=== PATIENT | female | born 1970 | race Caucasian/White ===

== ENCOUNTER 2021-02-13 15:42 | Inpatient (IN) ==
[2021-02-13] MEDS: Baclofen 10 MG TABLET PO SCH (20:56)
[2021-02-13] MEDS: *HR* HYDROcodone/Acet 5/325 mg TABLET PO PRN (20:56)
[2021-02-13] MEDS: Gabapentin 300 MG CAPSULE PO SCH (20:57)
[2021-02-13] MEDS: Insulin LISPRO 300 UNITS/3 ML VIAL SUBQ SCH (20:58)
[2021-02-14] MEDS: *HR* OxyCODONE Immed Rel 5 MG TABLET PO PRN ×3 (02:31→20:15)
[2021-02-14] MEDS: Baclofen 10 MG TABLET PO SCH ×3 (04:10→20:15)
[2021-02-14 07:06] LABS: Basophils % 0.1 %; Eosinophils # 0.2 K/mcL (0.0-0.6); Eosinophils % 3.1 %; Hematocrit 27.7 % (35.3-44.9); Hemoglobin 9.1 g/dL (11.5-15.4); Immature Granulocytes % 0.4 % (0-4); Lymphocytes # 2.3 K/mcL (0.6-4.6); Mean Corpuscular HGB Conc 32.9 g/dL (31.6-35.5); Mean Corpuscular Hemoglobin 29.1 pg (28.0-33.3); Mean Corpuscular Volume 88.5 fL (83.0-100.0); Mean Platelet Volume 8.3 fL (9.4-12.4); Monocytes # 0.5 K/mcL (0.0-1.3); Monocytes % 6.5 %; Neutrophils # 4.8 K/mcL (1.6-8.9); Platelet Count 387 K/mcL (140-400); Red Blood Count 3.13 M/mcL (3.82-4.97); Red Cell Distribution Width 13.1 % (11.5-14.5); Segmented Neutrophils % 60.9 %; White Blood Count 7.8 K/mcL (4.3-11.1)
[2021-02-14 07:25] LABS: BUN/Creatinine Ratio 25 (6-26); Blood Urea Nitrogen 14 mg/dL (6-20); Carbon Dioxide 27 mEq/L (23-29); Chloride 105 mEq/L (98-107); Glucose 117 mg/dL (70-105); Osmolality,Calculated 288 (280-300); Potassium 3.5 mEq/L (3.5-5.1); Sodium 138 mEq/L (136-145); eGFR For African Americans > 60 (> 60); eGFR For Non-African Americans > 60 (> 60)
[2021-02-14] MEDS: Insulin LISPRO 300 UNITS/3 ML VIAL SUBQ SCH ×4 (08:00→20:16)
[2021-02-14] MEDS: Gabapentin 300 MG CAPSULE PO SCH ×3 (08:13→20:15)
[2021-02-14] MEDS: *HR* Metformin 500 MG TABLET PO SCH (08:13)
[2021-02-14] MEDS: *HR* HYDROcodone/Acet 5/325 mg TABLET PO PRN ×2 (08:14→16:17)
[2021-02-14] MEDS: (Mirabegron [Myrbetriq] 50 MG Tab.Er.24h) PO SCH (08:28)
[2021-02-14] MEDS ORDERED: Patient Taking Own Medication 1 EACH PO SCH (09:00)
[2021-02-15] MEDS: Baclofen 10 MG TABLET PO SCH ×3 (03:37→21:39)
[2021-02-15] MEDS: *HR* HYDROcodone/Acet 5/325 mg TABLET PO PRN ×3 (03:37→21:40)
[2021-02-15] MEDS: Insulin LISPRO 300 UNITS/3 ML VIAL SUBQ SCH ×4 (08:22→21:40)
[2021-02-15] MEDS: Gabapentin 300 MG CAPSULE PO SCH ×3 (08:23→21:39)
[2021-02-15] MEDS: *HR* Metformin 500 MG TABLET PO SCH (08:23)
[2021-02-15] MEDS: (Mirabegron [Myrbetriq] 50 MG Tab.Er.24h) PO SCH (08:23)
[2021-02-15] MEDS: [UNRECOGNIZED DRUG - REMARK] PO SCH (08:59)
[2021-02-15] MEDS: *HR* OxyCODONE Immed Rel 5 MG TABLET PO PRN ×2 (10:11→17:41)
[2021-02-16] MEDS: Baclofen 10 MG TABLET PO SCH ×3 (04:48→21:23)
[2021-02-16] MEDS: *HR* OxyCODONE Immed Rel 5 MG TABLET PO PRN ×3 (04:48→21:23)
[2021-02-16] MEDS: Insulin LISPRO 300 UNITS/3 ML VIAL SUBQ SCH ×4 (09:00→23:25)
[2021-02-16] MEDS: Gabapentin 300 MG CAPSULE PO SCH ×3 (09:04→21:23)
[2021-02-16] MEDS: *HR* Metformin 500 MG TABLET PO SCH (09:04)
[2021-02-16] MEDS: *HR* HYDROcodone/Acet 5/325 mg TABLET PO PRN ×2 (09:04→18:25)
[2021-02-16] MEDS: (Mirabegron [Myrbetriq] 50 MG Tab.Er.24h) PO SCH (09:05)
[2021-02-16] MEDS: [UNRECOGNIZED DRUG - REMARK] PO SCH (09:05)
[2021-02-16] MEDS: tiZANidine 4 MG TABLET PO PRN (09:05)
[2021-02-17] MEDS: Baclofen 10 MG TABLET PO SCH ×3 (04:54→21:48)
[2021-02-17] MEDS: Insulin LISPRO 300 UNITS/3 ML VIAL SUBQ SCH ×4 (08:31→21:42)
[2021-02-17] MEDS: Gabapentin 300 MG CAPSULE PO SCH ×3 (08:38→21:41)
[2021-02-17] MEDS: [UNRECOGNIZED DRUG - REMARK] PO SCH (08:38)
[2021-02-17] MEDS: *HR* OxyCODONE Immed Rel 5 MG TABLET PO PRN ×2 (08:39→17:26)
[2021-02-17] MEDS: *HR* Metformin 500 MG TABLET PO SCH (08:39)
[2021-02-17] MEDS: tiZANidine 4 MG TABLET PO PRN (08:39)
[2021-02-17] MEDS: (Mirabegron [Myrbetriq] 50 MG Tab.Er.24h) PO SCH (08:40)
[2021-02-17] MEDS: *HR* HYDROcodone/Acet 5/325 mg TABLET PO PRN (11:47)
[2021-02-18] MEDS: Baclofen 10 MG TABLET PO SCH ×3 (04:25→21:57)
[2021-02-18] MEDS: Insulin LISPRO 300 UNITS/3 ML VIAL SUBQ SCH ×4 (08:41→21:48)
[2021-02-18] MEDS: (Mirabegron [Myrbetriq] 50 MG Tab.Er.24h) PO SCH (08:51)
[2021-02-18] MEDS: [UNRECOGNIZED DRUG - REMARK] PO SCH (08:51)
[2021-02-18] MEDS: tiZANidine 4 MG TABLET PO PRN (08:52)
[2021-02-18] MEDS: Gabapentin 300 MG CAPSULE PO SCH ×3 (08:52→21:47)
[2021-02-18] MEDS: *HR* OxyCODONE Immed Rel 5 MG TABLET PO PRN (08:52)
[2021-02-18] MEDS: *HR* Metformin 500 MG TABLET PO SCH (08:53)
[2021-02-18] MEDS: *HR* HYDROcodone/Acet 5/325 mg TABLET PO PRN ×2 (12:53→21:53)
[2021-02-19] MEDS: Baclofen 10 MG TABLET PO SCH ×3 (05:06→20:15)
[2021-02-19] MEDS: *HR* OxyCODONE Immed Rel 5 MG TABLET PO PRN ×2 (05:09→12:55)
[2021-02-19] MEDS: Gabapentin 300 MG CAPSULE PO SCH ×3 (08:25→20:15)
[2021-02-19] MEDS: [UNRECOGNIZED DRUG - REMARK] PO SCH (08:25)
[2021-02-19] MEDS: *HR* Metformin 500 MG TABLET PO SCH (08:25)
[2021-02-19] MEDS: (Mirabegron [Myrbetriq] 50 MG Tab.Er.24h) PO SCH (08:26)
[2021-02-19] MEDS: tiZANidine 4 MG TABLET PO PRN (08:28)
[2021-02-19] MEDS: Insulin LISPRO 300 UNITS/3 ML VIAL SUBQ SCH ×4 (08:28→20:24)
[2021-02-19] MEDS: *HR* HYDROcodone/Acet 5/325 mg TABLET PO PRN ×2 (08:28→18:49)
[2021-02-20] MEDS: *HR* HYDROcodone/Acet 5/325 mg TABLET PO PRN ×2 (05:07→15:04)
[2021-02-20] MEDS: Baclofen 10 MG TABLET PO SCH ×3 (05:07→20:22)
[2021-02-20] MEDS: Insulin LISPRO 300 UNITS/3 ML VIAL SUBQ SCH ×4 (07:36→20:18)
[2021-02-20] MEDS: (Mirabegron [Myrbetriq] 50 MG Tab.Er.24h) PO SCH (08:48)
[2021-02-20] MEDS: Gabapentin 300 MG CAPSULE PO SCH ×3 (08:48→20:22)
[2021-02-20] MEDS: *HR* OxyCODONE Immed Rel 5 MG TABLET PO PRN ×2 (08:48→21:49)
[2021-02-20] MEDS: [UNRECOGNIZED DRUG - REMARK] PO SCH (08:48)
[2021-02-20] MEDS: *HR* Metformin 500 MG TABLET PO SCH (08:49)
[2021-02-20] MEDS: tiZANidine 4 MG TABLET PO PRN ×2 (09:26→17:10)
[2021-02-20 09:46] LABS: Basophils % 0.1 %; Eosinophils # 0.2 K/mcL (0.0-0.6); Eosinophils % 2.5 %; Hematocrit 31.2 % (35.3-44.9); Hemoglobin 10.1 g/dL (11.5-15.4); Immature Granulocytes % 0.4 % (0-4); Lymphocytes # 2.3 K/mcL (0.6-4.6); Lymphocytes % 27.2 %; Mean Corpuscular HGB Conc 32.4 g/dL (31.6-35.5); Mean Corpuscular Volume 89.7 fL (83.0-100.0); Mean Platelet Volume 8.6 fL (9.4-12.4); Monocytes # 0.5 K/mcL (0.0-1.3); Monocytes % 5.8 %; Neutrophils # 5.3 K/mcL (1.6-8.9); Platelet Count 546 K/mcL (140-400); Red Blood Count 3.48 M/mcL (3.82-4.97); White Blood Count 8.3 K/mcL (4.3-11.1)
[2021-02-20 09:55] LABS: BUN/Creatinine Ratio 23 (6-26); Blood Urea Nitrogen 15 mg/dL (6-20); Calcium 9.3 mg/dL (8.6-10.3); Carbon Dioxide 28 mEq/L (23-29); Chloride 102 mEq/L (98-107); Glucose 164 mg/dL (70-105); Osmolality,Calculated 292 (280-300); Potassium 3.6 mEq/L (3.5-5.1); Sodium 139 mEq/L (136-145); eGFR For African Americans > 60 (> 60); eGFR For Non-African Americans > 60 (> 60)
[2021-02-21] MEDS: Baclofen 10 MG TABLET PO SCH ×3 (03:05→20:06)
[2021-02-21] MEDS: *HR* HYDROcodone/Acet 5/325 mg TABLET PO PRN ×3 (03:05→20:05)
[2021-02-21] MEDS: *HR* OxyCODONE Immed Rel 5 MG TABLET PO PRN ×2 (05:13→16:25)
[2021-02-21] MEDS: Insulin LISPRO 300 UNITS/3 ML VIAL SUBQ SCH ×4 (08:35→20:08)
[2021-02-21] MEDS: *HR* Metformin 500 MG TABLET PO SCH (08:46)
[2021-02-21] MEDS: Gabapentin 300 MG CAPSULE PO SCH ×3 (08:46→20:06)
[2021-02-21] MEDS: [UNRECOGNIZED DRUG - REMARK] PO SCH (08:48)
[2021-02-21] MEDS: (Mirabegron [Myrbetriq] 50 MG Tab.Er.24h) PO SCH (08:49)
[2021-02-22] MEDS: tiZANidine 4 MG TABLET PO PRN (00:15)
[2021-02-22] MEDS: *HR* OxyCODONE Immed Rel 5 MG TABLET PO PRN ×2 (04:29→14:30)
[2021-02-22] MEDS: Baclofen 10 MG TABLET PO SCH ×3 (04:32→21:13)
[2021-02-22] MEDS: *HR* Metformin 500 MG TABLET PO SCH (07:26)
[2021-02-22] MEDS: Insulin LISPRO 300 UNITS/3 ML VIAL SUBQ SCH ×4 (07:27→20:27)
[2021-02-22] MEDS: *HR* HYDROcodone/Acet 5/325 mg TABLET PO PRN (07:33)
[2021-02-22] MEDS: Gabapentin 300 MG CAPSULE PO SCH ×3 (08:27→21:13)
[2021-02-22] MEDS: [UNRECOGNIZED DRUG - REMARK] PO SCH (08:29)
[2021-02-22] MEDS: (Mirabegron [Myrbetriq] 50 MG Tab.Er.24h) PO SCH (08:30)
[2021-02-23] MEDS: *HR* OxyCODONE Immed Rel 5 MG TABLET PO PRN ×2 (04:44→18:02)
[2021-02-23] MEDS: Baclofen 10 MG TABLET PO SCH ×3 (04:44→20:27)
[2021-02-23] MEDS: Gabapentin 300 MG CAPSULE PO SCH ×3 (08:22→20:28)
[2021-02-23] MEDS: (Mirabegron [Myrbetriq] 50 MG Tab.Er.24h) PO SCH (08:22)
[2021-02-23] MEDS: *HR* Metformin 500 MG TABLET PO SCH (08:22)
[2021-02-23] MEDS: [UNRECOGNIZED DRUG - REMARK] PO SCH (08:22)
[2021-02-23] MEDS: Insulin LISPRO 300 UNITS/3 ML VIAL SUBQ SCH ×4 (08:23→20:32)
[2021-02-23] MEDS: tiZANidine 4 MG TABLET PO PRN ×2 (09:34→18:02)
[2021-02-23] MEDS: *HR* HYDROcodone/Acet 5/325 mg TABLET PO PRN ×2 (09:34→20:28)
[2021-02-24] MEDS: Baclofen 10 MG TABLET PO SCH (03:56)
[2021-02-24 06:54] VITALS: BP 147/70
[2021-02-24] MEDS: Gabapentin 300 MG CAPSULE PO SCH (08:27)
[2021-02-24] MEDS: tiZANidine 4 MG TABLET PO PRN (08:28)
[2021-02-24] MEDS: *HR* Metformin 500 MG TABLET PO SCH (08:28)
[2021-02-24] MEDS: *HR* OxyCODONE Immed Rel 5 MG TABLET PO PRN (08:28)
[2021-02-24] MEDS: (Mirabegron [Myrbetriq] 50 MG Tab.Er.24h) PO SCH (08:29)
[2021-02-24] MEDS: [UNRECOGNIZED DRUG - REMARK] PO SCH (08:29)
[2021-02-24] MEDS: Insulin LISPRO 300 UNITS/3 ML VIAL SUBQ SCH (08:29)
== END 2021-02-24 09:44 | disposition home or self-care (01) | DRG 560 ==
LOC: INPPIK 20:38
PROVIDERS: ADMIT Family Medicine; ATTEND Family Medicine